=== PATIENT | male | born 1945 | race African-American/Black ===

== ENCOUNTER 2019-09-04 13:41 | Inpatient (IN) | payer MEDICARE, BC ==
[~2019-09-04] VITALS: Ht 190.5 cm; Wt 117.5 kg
[2019-09-04] VITALS (7 sets, daily range): BP systolic 95–162; BP diastolic 56–82; BMI 32.4
[2019-09-04] MEDS ORDERED: FLOMAX0.4 MG PO (14:02)
[2019-09-04] MEDS ORDERED: PEPCID AC20 MG PO (14:02)
[2019-09-04] MEDS ORDERED: GLUCOTROL 5 MG T5 MG PO (14:03)
[2019-09-04] MEDS ORDERED: VITAMIN B-1100 M1 PO (14:05)
[2019-09-04] MEDS ORDERED: HEALTHYLAX17 GM PO (14:05)
[2019-09-04] MEDS ORDERED: TOUJEO SOL300 UNIT/1 SC (14:05)
[2019-09-04] MEDS ORDERED: ASCORBIC ACID500 MG PO (14:06)
[2019-09-04] MEDS ORDERED: ZINC-220220 MG PO (14:06)
[2019-09-04] MEDS ORDERED: KEPPRA750 MG PO (14:06)
[2019-09-04] MEDS ORDERED: FUROSEMIDE20 MG PO (14:07)
[2019-09-04] MEDS ORDERED: IPRAT-ALBUT 0.5-3 ML UPD (14:09)
[2019-09-04] MEDS ORDERED: CHRONULAC30 ML PO (14:09)
[2019-09-04] MEDS ORDERED: SCOT-TUSSI10 MG/5 ML PO (14:11)
[2019-09-04] MEDS ORDERED: ACETAMINOPHEN325 MG PO (14:12)
[2019-09-04] MEDS ORDERED: ZOFRAN ODT4 MG/UDTAB PO (14:12)
[2019-09-04 14:29] LABS: HEMATOCRIT 38.6 % (42.0-54.0); HEMOGLOBIN 12.1 g/dL (13.5-17.5); MCH 26.7 pg (26.0-34.0); MCHC 31.3 g/dL (31.0-37.0); MCV 85.2 fL (80.0-100.0); PLATELET COUNT 150 10x3/uL (130-400); RBC 4.53 10x6/uL (4.20-6.10); RDW 14.7 % (11.5-14.5); WBC 10.9 10x3/uL (4.8-10.8)
[2019-09-04 14:37] LABS: APPEARANCE HAZY (CLEAR); BACTERIA FEW /hpf (NEGATIVE); BILIRUBIN NEGATIVE (NEGATIVE); COLOR YELLOW (YELLOW); EPITHELIAL CELLS 0-5 /hpf (0-5); GLUCOSE NEGATIVE (NEGATIVE); KETONE NEGATIVE (NEGATIVE); NITRITE NEGATIVE (NEGATIVE); PROTEIN 1+ mg/dL (NEGATIVE); RED CELLS - URINE 0-5 /hpf (0-5); SPECIFIC GRAVITY 1.025 (1.005-1.020); UROBILINOGEN NORMAL (NORMAL)
[2019-09-04 14:38] LABS: WHITE CELLS - URINE OCC /hpf (NEGATIVE)
[2019-09-04 14:51] LABS: CALC OSMOLALITY 280 mosm/kg (275-300); CALCIUM 8.4 mg/dL (8.5-10.1); CARBON DIOXIDE 26.9 mmol/L (21.0-32.0); CHLORIDE - SERUM 107 mmol/L (98-107); CREATININE - SERUM 1.4 mg/dL (0.6-1.3); GLUCOSE 76 mg/dL (74-106); POTASSIUM - SERUM 4.6 mmol/L (3.5-5.1); SODIUM 140 mmol/L (136-145); UREA NITROGEN 21 mg/dL (7-18); eGFR NON AFRICAN AMERICAN 53 mL/min (90-120)
[2019-09-04 14:59] LABS: ALBUMIN 2.5 g/dL (3.4-5.0); ALKALINE PHOSPHATASE 134 U/L (46-116); ALT (SGPT) 19 U/L (10-68); AMYLASE - SERUM 145 U/L (25-115); BILIRUBIN - TOTAL 0.67 mg/dL (0.2-1.3); LIPASE 120 U/L (73-393)
[2019-09-04 15:00] LABS: TROPONIN-I < 0.017 ng/mL (0.000-0.060)
[2019-09-04 15:45] LABS: EOSINOPHILS 3 % (0-7); LYMPHOCYTES 34 % (15-50); MONOCYTES 1 % (2-11); NEUTROPHILS 62 % (40-80); PLATELET ESTIMATE NORMAL
--- NOTE | 2019-09-04 18:10 | NUR ---
PT RECEIVED FROM ER VSS PHYSICIAN CONSULTS ADM. WILL CONTINUE TO MONITOR
--- NOTE | 2019-09-04 22:30 | NUR ---
IN BED WITH EYES CLOSED. VITAL SIGNS STABLE. REFUSING TREATMENT AND BEING PHYSICALLY AND VERBALLY AGGRESSIVE TOWARDS STAFF. MD NOTIFIED. WILL CONTINUE TO MONITOR.
[2019-09-05] VITALS (13 sets, daily range): BP systolic 107–146; BP diastolic 38–91; Ht 190.5 cm; Wt 117.5 kg
[2019-09-05 04:24] LABS: BASOPHILS 0.2 % (0-2); EOSINOPHILS 1.8 % (0-7); HEMATOCRIT 35.3 % (42.0-54.0); LYMPHOCYTES 23.7 % (15-50); MCH 26.4 pg (26.0-34.0); MCHC 31.2 g/dL (31.0-37.0); MCV 84.9 fL (80.0-100.0); MEAN PLATELET VOLUME 10.2 fL (7.4-10.4); MONOCYTES 11.6 % (2-11); NEUTROPHILS 62.7 % (40-80); PLATELET COUNT 144 10x3/uL (130-400); RBC 4.16 10x6/uL (4.20-6.10); RDW 14.4 % (11.5-14.5)
[2019-09-05 04:51] LABS: WBC 6.6 10x3/uL (4.8-10.8)
[2019-09-05 05:03] LABS: ALBUMIN 2.3 g/dL (3.4-5.0); ANION GAP 10.9 mmol/L (8-16); BILIRUBIN - TOTAL 0.46 mg/dL (0.2-1.3); CALCIUM 7.9 mg/dL (8.5-10.1); CARBON DIOXIDE 29.5 mmol/L (21.0-32.0); CREATININE - SERUM 1.1 mg/dL (0.6-1.3); POTASSIUM - SERUM 4.4 mmol/L (3.5-5.1); PROTEIN - SERUM 6.8 g/dL (6.4-8.2)
--- NOTE | 2019-09-05 07:15 | NUR ---
REPORT RECEIVED. ASSESSMENT COMPELTE PER FLOW SHEET. REFER FOR FINDINVS. VSS. PT ASSISTED OOB TO VOID 250 CC VOID NOTED. ASSISTED BACK TO BED. BED ALARM ON. NEEDS MET WILL CONTINUE TO MONITOR
--- NOTE | 2019-09-05 09:20 | NUR ---
ASSISTED OOB TO VOID. 150 CC VOID NOTED. WILL CONTINUE TO MONITOR
--- NOTE | 2019-09-05 11:00 | NUR ---
REASSESSMENT COMPLETE PER FLOW SHEET. VSS. NO NEW CHANGES WILL CONTINUE TO MONITOR
--- NOTE | 2019-09-05 13:20 | NUR ---
SANCHEZ WITH WOUND CARE AT BEDSIDE. LEGS DEBRID
--- NOTE | 2019-09-05 15:40 | NUR ---
DR CALVO AT BEDSIDE GIVEN UPDATE. TRANSFER ORDERS OBTAINED
--- NOTE | 2019-09-05 17:20 | NUR ---
COMPLETE BB LINEN CHANGE ADM. WILL CONTINUE TO MONITOR
--- NOTE | 2019-09-05 19:34 | NUR ---
PT TRANSFERED TO FLOOR, NO SIGNS OF DISTRESS. CLARENCE ALARM ON, PT DENIES ANY PAIN OR NEEDS AT THIS TIME. CL IN REACH, BED IN LOWEST POSITION.
[2019-09-06 00:30] VITALS: BP 122/48
--- NOTE | 2019-09-06 04:00 | NUR ---
PT BED ALARM WAS GOING OFF, WAITER/WAITRESS CLUB WENT INTO ROOM TO ASSIST PT AND PT STATED, "IM GOING TO FALL ON PURPOSE SO I CAN KAUSHAL YOU ALL" WAITER/WAITRESS CLUB ASSISTED PT BACK TO BED. CL IN REACH, BED IN LOWEST POSITION. FALL PERCAUTIONS FOLLOWED.
[2019-09-06 04:30] VITALS: BP 137/77
[2019-09-06 10:55] VITALS: BP 135/62
[2019-09-06 14:09] VITALS: BP 141/46
--- NOTE | 2019-09-06 15:18 | MORECARE ---
CASE MANAGEMENT DISCHARGE SUMMARY PATIENT: RAVI ENRIQUE UNIT: [id number] ADM DATE: 09/04/19 AGE: 74 : 46 SEX: M ROOM/BED: D.8933 AUTHOR: YOUNG GRIFFIN PHYSICIAN: REFERRING PHYSICIAN: RICHAR CUMMINS MD DATE OF SERVICE: 09/06/19 Discharge Plan Patient Name: RAVI ENRIQUE Facility: [facility]:[place] : 1945 Planned Disposition: Nursing Facility [facility] Anticipated Discharge Date: 09/07/19 Discharge Date: Expected LOS: 3 Initial Reviewer: [id number] Initial Review Date: 09/06/2019 Generated: 09/06/19 4:17 pm Patient Name: RAVI ENRIQUE Page 80460 at 1518 All edits/amendments must be made on the electronic document DICTATION DATE: 09/06/19 1517 WATER RIGHTS SPECIALIST: SHERI 09/06/19 1517 RPT#: [id number] DC DATE: STATUS: ADM IN [facility] [address] [place] [address] END OF REPORT
--- NOTE | 2019-09-06 15:33 | MORECARE ---
CASE MANAGEMENT DISCHARGE SUMMARY PATIENT: RAVI ENRIQUE UNIT: [id number] ADM DATE: 09/04/19 AGE: 74 : 46 SEX: M ROOM/BED: D.8227 AUTHOR: GABY,DOC PHYSICIAN: REFERRING PHYSICIAN: RICHAR CUMMINS MD DATE OF SERVICE: 09/06/19 Discharge Plan Patient Name: RAVI ENRIQUE Facility: [facility]:[place] : 1945 Planned Disposition: Nursing Facility [facility] Cert Anticipated Discharge Date: 09/07/19 Discharge Date: Expected LOS: 3 Initial Reviewer: [id number] Initial Review Date: 09/06/2019 Generated: 09/06/19 4:32 pm Comments DCP- Discharge Planning Updated by [id number]: Luan Hitchcock on 09/06/19 2:[address] Patient Name: RAVI ENRIQUE Admission Status: ER Accout number: [id number] Admission Date: 09-04-2019 : 1945 Admission Diagnosis: Attending: CRISTA Current LOS: 2 Anticipated DC Date: 09-07-2019 Planned Disposition: Nursing Facility [facility] Cert Primary Insurance: MEDICARE A & B PLANNED EXTERNAL PROVIDER: [facility], LONG TERM CARE MEDICAID BED Discharge Planning Comments: CM MET WITH PT IN ROOM TO DISCUSS DISCHARGE PLANNING AND NEEDS. PT REPORTS LIVING AT [facility] FOR ABOUT 6 MONTHS. PT REPORTS BEING SAFE THERE AND WILL RETURN AT DISCHARGE. PT THINKS HE IS OK NOW FOR DISCHARGE AND IS WAITING ON THE DOCTOR. PT HAS WALKER HE USES AT THE FACILITY. PT DENIES DISCHARGE NEEDS, REPORTS THE [facility]RE[facility] WILL PICK HIM UP FOR DISCHARGE HOME. CHOICE COMPLETED FOR [facility]. CM FAXED REFERRAL INFORMATION TO [facility] AT [phone]. CM CALLED JOSE AT [facility], , VERIFIED PT LIVES AT [facility] AND WILL RETURN TO [facility]. FAX DISCHARGE INFORMATION TO [facility] AT [phone]. NURSE REPORT TO BE CALLED TO [facility] AT [phone]; [facility] TO ARRANGE VAN TRANSPORTATION. Asphalt Spreader Operator: Luan Hitchcock DCPIA - Discharge Planning Initial Assessment Updated by [id number]: Luan Hitchcock on 09/06/19 3:18 pm * Is the patient Alert and Oriented? Yes * How many steps to enter\exit or inside your home? NONE * PCP DR. KIRK * Pharmacy [facility] * Preadmission Environment [facility] * [facility] * ADLs Partial Dependent * Partial ADLs (Assistance needed) Bathing Medication Management * Equipment Walker * Other Equipment ALL MEDICAL EQUIPMENT PROVIDED BY FACILITY * List name and contact numbers for known caregivers / representatives who currently or will assist patient after discharge: VIOLET BAPTISTE, , * Verbal permission to speak to the caregivers and representatives has been obtained from the patient. N/A * Community resources currently utilized None * Please name any agencies selected above. NONE * Additional services required to return to the preadmission environment? No * Can the patient safely return to the preadmission environment? Yes * Has this patient been hospitalized within the prior 30 days at any hospital? No Coverage Notice Reviewer: [id number] - Luan Hitchcock Notice Issued Date-Time: 09/06/2019 12:35 Notice Type: Patient Choice Letter Notice Delivered To: Patient Relationship to Patient: Dried Fruit Washer Name: Delivery Method: HAND - Hand Delivered Vilma Days: Prior Verbal Notification: Recipient Understood Notice: Yes Recipient Signature: Yes Med Rec Note Co-signed by Attending: Coverage Notice Comment: [facility] HU[facility] export: 09/06/19 2:18 pm Patient Name: RAVI ENRIQUE Page 53773 at 1533 All edits/amendments must be made on the electronic document DICTATION DATE: 09/06/19 1532 RETURNED TELEPHONE EQUIPMENT APPRAISER: SHERI 09/06/19 153 RPT#: [id number] DC DATE: STATUS: ADM IN [facility] [address] [place] [address] END OF REPORT
[2019-09-06 16:24] LABS: BASOPHILS 0.2 % (0-2); EOSINOPHILS 2.1 % (0-7); HEMATOCRIT 36.8 % (42.0-54.0); HEMOGLOBIN 11.5 g/dL (13.5-17.5); IMMATURE GRANULOCYTES 0.2 % (0-5); LYMPHOCYTES 26.9 % (15-50); MCH 26.6 pg (26.0-34.0); MCHC 31.3 g/dL (31.0-37.0); MEAN PLATELET VOLUME 9.9 fL (7.4-10.4); MONOCYTES 13.4 % (2-11); NEUTROPHILS 57.2 % (40-80); PLATELET COUNT 117 10x3/uL (130-400); RBC 4.33 10x6/uL (4.20-6.10); RDW 14.2 % (11.5-14.5); WBC 6.3 10x3/uL (4.8-10.8)
[2019-09-06 17:19] LABS: ALBUMIN 2.5 g/dL (3.4-5.0); ANION GAP 13.6 mmol/L (8-16); BILIRUBIN - TOTAL 0.3 mg/dL (0.2-1.3); CALCIUM 7.8 mg/dL (8.5-10.1); CARBON DIOXIDE 25.9 mmol/L (21.0-32.0); CREATININE - SERUM 1.2 mg/dL (0.6-1.3); MAGNESIUM - SERUM 1.9 mg/dL (1.8-2.4); POTASSIUM - SERUM 4.5 mmol/L (3.5-5.1); PROTEIN - SERUM 7.1 g/dL (6.4-8.2)
[2019-09-06 17:24] VITALS: BP 131/59
--- NOTE | 2019-09-06 23:49 | NUR ---
RESOURCES REPRESENTATIVE AT BED SIDE TO OBTAIN VITALS, PT YELLED AT PT TO GET OUT AND LEAVE HIM ALONE.
--- NOTE | 2019-09-07 00:45 | NUR ---
ENTERED ROOM TO HANG IV ABX. PT AWAKE IN BED, ASKED PT HOW HE WAS DOING. PT STATED BAD, WHEN ASKED PT WHAT WAS WRONG PT STATED THAT HE WAS DOING BAD BECAUSE I ENTERED HIS ROOM. PT "WANTS TO BE LEFT ALONE" I THEN NOTICED IV TO RIGHT HAND OUT, TIP INTACT. PT REFUSES TO LET NURSE RESITE IV. PT WONT EVEN LET THE NURSE REMOVE THE IV CATH THAT IS STILL TAPED TO THE TOP OF HIS HAND.
--- NOTE | 2019-09-07 05:12 | NUR ---
I have reviewed this patient and I concur with the Shift Assessment completed by the Licensed Practical Nurse today this shift.
--- NOTE | 2019-09-07 05:38 | NUR ---
PT LET ME REMOVE THE OLD IV CATH THAT WAS TAPED TO HIS HIS BUT REFUSED TO LET ME SITE NEW PIV. BUT DID HOWEVER AGREE TO LET LAB DRAW HIS BLOOD FOR AM LABS.
--- NOTE | 2019-09-07 06:02 | NUR ---
PT ALLOWED JOSE PRICE TO RESITE PIV, 22 GUAGE, ONE ATTEMPT, TO LEFT HAND. PT TOLERATED WELL.
--- NOTE | 2019-09-07 09:25 | MORECARE ---
CASE MANAGEMENT DISCHARGE SUMMARY PATIENT: RAVI ENRIQUE UNIT: [id number] ADM DATE: 09/04/19 AGE: 74 : 46 SEX: M ROOM/BED: D.8457 AUTHOR: GABY,DOC PHYSICIAN: REFERRING PHYSICIAN: RICHAR CUMMINS MD DATE OF SERVICE: 09/07/19 Discharge Plan Patient Name: RAVI ENRIQUE Facility: [facility]:[place] : 1945 Planned Disposition: Nursing Facility [facility] Cert Anticipated Discharge Date: 09/07/19 Discharge Date: Expected LOS: 3 Initial Reviewer: [id number] Initial Review Date: 09/06/2019 Generated: 09/07/19 10:25 am Comments DCP- Discharge Planning Updated by [id number]: Luan Hitchcock on 09/06/19 2:[address] Patient Name: RAVI ENRIQUE Admission Status: ER Accout number: [id number] Admission Date: 09-04-2019 : 1945 Admission Diagnosis: Attending: CRISTA Current LOS: 2 Anticipated DC Date: 09-07-2019 Planned Disposition: Nursing Facility [facility] Cert Primary Insurance: MEDICARE A & B PLANNED EXTERNAL PROVIDER: [facility], LONG TERM CARE MEDICAID BED Discharge Planning Comments: CM MET WITH PT IN ROOM TO DISCUSS DISCHARGE PLANNING AND NEEDS. PT REPORTS LIVING AT [facility] FOR ABOUT 6 MONTHS. PT REPORTS BEING SAFE THERE AND WILL RETURN AT DISCHARGE. PT THINKS HE IS OK NOW FOR DISCHARGE AND IS WAITING ON THE DOCTOR. PT HAS WALKER HE USES AT THE FACILITY. PT DENIES DISCHARGE NEEDS, REPORTS THE [facility] WILL PICK HIM UP FOR DISCHARGE HOME. CHOICE COMPLETED FOR [facility]. CM FAXED REFERRAL INFORMATION TO [facility] AT [phone]. CM CALLED JOSE AT [facility], , VERIFIED PT LIVES AT [facility] AND WILL RETURN TO [facility]. FAX DISCHARGE INFORMATION TO [facility] AT [phone]. NURSE REPORT TO BE CALLED TO [facility] AT [phone]; [facility] TO ARRANGE VAN TRANSPORTATION. Foreign Correspondent: Luan Hitchcock DCPIA - Discharge Planning Initial Assessment Updated by [id number]: Luan Hitchcock on 09/06/19 3:18 pm * Is the patient Alert and Oriented? Yes * How many steps to enter\exit or inside your home? NONE * PCP DR. KIRK * Pharmacy [facility] * Preadmission Environment [facility] * Facility Name [facility] * ADLs Partial Dependent * Partial ADLs (Assistance needed) Bathing Medication Management * Equipment Walker * Other Equipment ALL MEDICAL EQUIPMENT PROVIDED BY FACILITY * List name and contact numbers for known caregivers / representatives who currently or will assist patient after discharge: VIOLET BAPTISTE, SISTER, * Verbal permission to speak to the caregivers and representatives has been obtained from the patient. N/A * Community resources currently utilized None * Please name any agencies selected above. NONE * Additional services required to return to the preadmission environment? No * Can the patient safely return to the preadmission environment? Yes * Has this patient been hospitalized within the prior 30 days at any hospital? No External Providers External Provider: OTHER-OTHER Next Contact Date: 09/07/2019 Service Request Date: Service Type: Resolution: Reviewer: Comments: Coverage Notice Reviewer: [id number] - Luan Coretta Notice Issued Date-Time: 09/06/2019 12:35 Notice Type: Patient Choice Letter Notice Delivered To: Patient Relationship to Patient: Child Adolescent Care Name: Delivery Method: HAND - Hand Delivered Vilma Days: Prior Verbal Notification: Recipient Understood Notice: Yes Recipient Signature: Yes Med Rec Note Co-signed by Attending: Coverage Notice Comment: [facility] DP export: 09/06/19 2:33 pm Patient Name: RAVI ENRIQUE Page 83654 at 0925 All edits/amendments must be made on the electronic document DICTATION DATE: 09/07/19924 MOLD WASHER: SHERI 09/07/19924 RPT#: [id number] DC DATE: STATUS: ADM IN [facility] [address] [place] [address] END OF REPORT
--- NOTE | 2019-09-07 10:18 | NUR ---
PT REFUSED KEPPRA BUT WOULD TAKE FLORAJEN. PT KRISTINA AND CUSSING AT THIS NURSE STATING "I AIN'T TAKING NO DAMN PILLS! GET OUT OF MY ROOM AND LEAVE ME ALONE!!" HEAVY EQUIPMENT SALES ASSOCIATE IN [facility] WITNESSED THIS. PT THEN TOOK FLORAJEN BUT STILL REFUSED TO TAKE KEPRA. DATA PROCESSING MANAGER IN ROOM AND PT STATES TO HIM "YOU AIN'T TAKING NO BLOOD ROM ME! YOU'VE ALREADY TAKEN TO [facility]!" DATA PROCESSING MANAGER THEN ASKED PT "SO ARE YOU REFUSING?" PT STATES "YES I AM REFUSING NOW GET OUT OF HERE!!"
--- NOTE | 2019-09-07 14:51 | MORECARE ---
CASE MANAGEMENT DISCHARGE SUMMARY PATIENT: RAVI ENRIQUE UNIT: [id number] ADM DATE: 09/04/19 AGE: 74 : 46 SEX: M ROOM/BED: D.5092 AUTHOR: GABY,DOC PHYSICIAN: REFERRING PHYSICIAN: RICHAR CUMMINS MD DATE OF SERVICE: 09/07/19 Discharge Plan Patient Name: RVAI ENRIQUE Facility: [facility]:[place] : 1945 Planned Disposition: Nursing Facility [facility] Cert Anticipated Discharge Date: 09/07/19 Discharge Date: Expected LOS: 3 Initial Reviewer: [id number] Initial Review Date: 09/06/2019 Generated: 09/07/19 3:51 pm Comments DCP- Discharge Planning Updated by [id number]: Luan Hitchcock on 09/06/19 2:[address] Patient Name: RAVI ENRIQUE Admission Status: ER Accout number: [id number] Admission Date: 09-04-2019 : 1945 Admission Diagnosis: Attending: CRISTA Current LOS: 2 Anticipated DC Date: 09-07-2019 Planned Disposition: Nursing Facility [facility] Cert Primary Insurance: MEDICARE A & B PLANNED EXTERNAL PROVIDER: [facility], LONG TERM CARE MEDICAID BED Discharge Planning Comments: CM MET WITH PT IN ROOM TO DISCUSS DISCHARGE PLANNING AND NEEDS. PT REPORTS LIVING AT [facility] FOR ABOUT 6 MONTHS. PT REPORTS BEING SAFE THERE AND WILL RETURN AT DISCHARGE. PT THINKS HE IS OK NOW FOR DISCHARGE AND IS WAITING ON THE DOCTOR. PT HAS WALKER HE USES AT THE FACILITY. PT DENIES DISCHARGE NEEDS, REPORTS THE [facility] WILL PICK HIM UP FOR DISCHARGE HOME. CHOICE COMPLETED FOR [facility]. CM FAXED REFERRAL INFORMATION TO [facility] AT [phone]. CM CALLED JOSE AT [facility], , VERIFIED PT LIVES AT [facility] AND WILL RETURN TO [facility]GR[facility]HER [facility]. FAX DISCHARGE INFORMATION TO [facility] AT [phone]. NURSE REPORT TO BE CALLED TO [facility] AT [phone]; [facility] TO ARRANGE VAN TRANSPORTATION. Radar Mechanic: Luan Hitchcock DCPIA - Discharge Planning Initial Assessment Updated by [id number]: Luan Hitchcock on 09/06/19 3:18 pm * Is the patient Alert and Oriented? Yes * How many steps to enter\exit or inside your home? NONE * PCP DR. KIRK * Pharmacy [facility] * Preadmission Environment [facility] * Facility Name [facility] * ADLs Partial Dependent * Partial ADLs (Assistance needed) Bathing Medication Management * Equipment Walker * Other Equipment ALL MEDICAL EQUIPMENT PROVIDED BY FACILITY * List name and contact numbers for known caregivers / representatives who currently or will assist patient after discharge: VIOLET BAPTISTE, SISTER, * Verbal permission to speak to the caregivers and representatives has been obtained from the patient. N/A * Community resources currently utilized None * Please name any agencies selected above. NONE * Additional services required to return to the preadmission environment? No * Can the patient safely return to the preadmission environment? Yes * Has this patient been hospitalized within the prior 30 days at any hospital? No Coverage Notice Reviewer: [id number] - Luan Hitchcock Notice Issued Date-Time: 09/06/2019 12:35 Notice Type: Patient Choice Letter Notice Delivered To: Patient Relationship to Patient: Networking Engineer Name: Delivery Method: HAND - Hand Delivered Vilma Days: Prior Verbal Notification: Recipient Understood Notice: Yes Recipient Signature: Yes Med Rec Note Co-signed by Attending: Coverage Notice Comment: [facility] HUFF export: 09/07/19 8:25 a Patient Name: RAVI ENRIQUE Page 53579 at 1451 All edits/amendments must be made on the electronic document DICTATION DATE: 09/07/191450 COSTUME MISTRESS: SHERI 09/07/19 145 RPT#: [id number] DC DATE: STATUS: ADM IN [facility] [address] [place] [address] END OF REPORT
--- NOTE | 2019-09-07 15:33 | MORECARE ---
CASE MANAGEMENT DISCHARGE SUMMARY PATIENT: RAVI ENRIQUE UNIT: [id number] ADM DATE: 09/04/19 AGE: 74 : 46 SEX: M ROOM/BED: D.2615 AUTHOR: GABY,DOC PHYSICIAN: REFERRING PHYSICIAN: RICHAR CUMMINS MD DATE OF SERVICE: 09/07/19 Discharge Plan Patient Name: RAVI ENRIQUE Facility: [facility]:[place] : 1945 Planned Disposition: Nursing Facility [facility] Cert Anticipated Discharge Date: 09/07/19 Discharge Date: Expected LOS: 3 Initial Reviewer: [id number] Initial Review Date: 09/06/2019 Generated: 09/07/19 4:32 pm Comments DCP- Discharge Planning Updated by [id number]: Luan Hitchcock on 09/07/19 2:[address] Patient Name: RAVI ENRIQUE Encounter No: [id number] : 1945 Primary Insurance: MEDICARE A & B Anticipated DC Date: 09-07-2019 Planned Disposition: Nursing Facility [facility] Cert External Planned Provider: [facility], LONG TERM CARE MEDICAID BED Discharge Planning Comments: CM RECEIVED DISCHARGE, FAXED DISCHARGE INFORMATION TO [facility] AT [phone]. CM CALLED AND NOTIFIED JOSE WHO WILL SEND VAN. PT NOTIFIED AND IN AGREEMENT WITH RETURN TO [facility]. IMPORTANT MESSAGE FROM MEDICARE PROVIDED AND EXPLAINED. NURSE REPORT TO BE CALLED TO [facility] AT [phone]; [facility] TO ARRANGE VAN TRANSPORTATION. Machine Operator Replanter: Luan Hitchcock DCP- Discharge Planning Updated by [id number]: Luan Hitchcock on 09/06/19 2:[address] Patient Name: RAVI ENRIQUE Admission Status: ER Accout number: [id number] Admission Date: 09-04-2019 : 1945 Admission Diagnosis: Attending: CRISTA Current LOS: 2 Anticipated DC Date: 09-07-2019 Planned Disposition: Nursing Facility [facility] Cert Primary Insurance: MEDICARE A & B [facility]ANNED [facility] [facility] CANCELLATION CLERK [facility] MEDICAID BED Discharge Planning Comments: CM MET WITH PT IN ROOM TO DISCUSS DISCHARGE PLANNING AND NEEDS. PT REPORTS LIVING AT [facility] FOR ABOUT 6 MONTHS. PT REPORTS BEING SAFE THERE AND WILL RETURN AT DISCHARGE. PT THINKS HE IS OK NOW FOR DISCHARGE AND IS WAITING ON THE DOCTOR. PT HAS WALKER HE USES AT THE FACILITY. PT DENIES DISCHARGE NEEDS, REPORTS THE INTERMEDIATE WILL PICK HIM UP FOR DISCHARGE HOME. CHOICE COMPLETED FOR [facility]. CM FAXED REFERRAL INFORMATION TO [facility] AT [phone]. CM CALLED JOSE AT [facility], , VERIFIED PT LIVES AT [facility] AND WILL RETURN TO SNF CARE. FAX DISCHARGE INFORMATION TO [facility] AT [phone]. NURSE REPORT TO BE CALLED TO [facility] AT [phone]; [facility] TO ARRANGE VAN TRANSPORTATION. Machine Operator Replanter: Luan Hitchcock DCPIA - Discharge Planning Initial Assessment Updated by [email or web address]: Luan Hitchcock on 09/06/19 3:18 pm * Is the patient Alert and Oriented? Yes * How many steps to enter\exit or inside your home? NONE * PCP DR. KIRK * Pharmacy [facility] * Preadmission Environment [facility] * Facility Name [facility] * ADLs Partial Dependent * Partial ADLs (Assistance needed) Bathing Medication Management * Equipment Walker * Other Equipment ALL MEDICAL EQUIPMENT PROVIDED BY FACILITY * List name and contact numbers for known caregivers / representatives who currently or will assist patient after discharge: VIOLET BAPTISTE, SISTER, * Verbal permission to speak to the caregivers and representatives has been obtained from the patient. N/A * Community resources currently utilized None * Please name any agencies selected above. NONE * Additional services required to return to the preadmission environment? No * Can the patient safely return to the preadmission environment? Yes * Has this patient been hospitalized within the prior 30 days at any hospital? No Coverage Notice Reviewer: [id number] Sidney Hitchcock Notice Issued Date-Time: 09/06/2019 12:35 Notice Type: Patient Choice Letter Notice Delivered To: Patient Relationship to Patient: Investigator Welfare Name: Delivery Method: HAND - Hand Delivered Vilma Days: Prior Verbal Notification: Recipient Understood Notice: Yes Recipient Signature: Yes Med Rec Note Co-signed by Attending: Coverage Notice Comment: [facility] Reviewer: [id number] - Luan Coretta Notice Issued Date-Time: 09/07/2019 15:15 Notice Type: IM Discharge Notice Notice Delivered To: Patient Relationship to Patient: Investigator Welfare Name: Delivery Method: HAND - Hand Delivered Vilma Days: Prior Verbal Notification: Recipient Understood Notice: Yes Recipient Signature: Yes Med Rec Note Co-signed by Attending: Coverage Notice Comment: Last DP export: 09/07/19 1:51 p Patient Name: RAVI ENRIQUE Page [id number] at 1533 All edits/amendments must be made on the electronic document DICTATION DATE: 09/07/19 1532 HOME HEALTH BILLING SPECIALIST: SHERI 09/07/19 1532 RPT#: [id number] DC DATE: STATUS: ADM IN [facility] [address] [place] [address] END OF REPORT
--- NOTE | 2019-09-07 15:48 | NUR ---
PT REFUSED TO SIGN DISCHARGE PAPERS AND STATES HE "WANTS TO BE LEFT ALONE!" [facility] CALLED AND GAVE REPORT. THEY ARE TO SET UP [facility].
--- NOTE | 2019-09-07 16:11 | NUR ---
LEFT HAND 22G IV DC'D WITH CATH INTACT.
--- NOTE | 2019-09-07 17:33 | NUR ---
PT LEFT VIA WC WITH STAFF FROM [facility] IN [facility].
== END 2019-09-07 17:33 | DRG 683 ==
LOC: D.ER 13:41 → D.M2 16:16 → D.ICU 16:16 → D.M2 09-05 19:30
PROVIDERS: Family Medicine; ADMIT Family Medicine; ATTEND Family Medicine
DX: N17.9 Acute kidney failure, unspecified (principal); K55.9 Vascular disorder of intestine, unspecified; E11.65 Type 2 diabetes mellitus with hyperglycemia; I10 Essential (primary) hypertension; J44.9 Chronic obstructive pulmonary disease, unspecified; D64.9 Anemia, unspecified; K74.60 Unspecified cirrhosis of liver; Z87.891 Personal history of nicotine dependence